=== PATIENT | male | born 1965 | race Caucasian/White ===

== ENCOUNTER 2018-11-01 11:22 | Inpatient (IN) | payer OTHER ==
[~2018-11-01] VITALS: Ht 175.3 cm; Wt 83.0 kg
[2018-11-01] MEDS ORDERED: IBUPROFEN 200 MG TABLET PO PRN (14:30)
[2018-11-01] MEDS ORDERED: ACETAMINOPHEN ES 500 MG TABLET PO PRN (14:30)
[2018-11-01] MEDS ORDERED: LORAZEPAM 1 MG TABLET FOR AGITATION PO PRN (14:30)
[2018-11-01] MEDS ORDERED: MAGNESIUM HYDROXIDE 30 ML UDC PO PRN (14:30)
[2018-11-01] MEDS ORDERED: ZOLPIDEM TARTRATE 10 MG TABLET PO PRN (14:30)
[2018-11-01] MEDS ORDERED: QUET400T PO (14:42)
[2018-11-01] MEDS ORDERED: ROPI0.5T PO (14:42)
[2018-11-01 14:45] VITALS: BP 122/83
--- NOTE | 2018-11-01 15:30 | NUR ---
MS/RN - Admission Patient is a direct admit from Dr. Christopher's office for clinical trial, alert and oriented x 4, denies pain, no apparent distress, calm and cooperative with care. Patient admitted for Schizophrenia. Skin assessment done, no skin breakdown, refused photo to be taken. Patient oriented to room and use of call light. All belongings accounted, refused inventory of black luggage. MRSA surveillance protocol done. Admission orders noted and carried out. Will continue to monitor and intervene as needed.
[2018-11-01 16:00] VITALS: BP 122/83
--- NOTE | 2018-11-01 16:30 | NUR ---
MS/RN - S/b Dr. Christopher Seen and examined by Dr. Christopher with no new orders.
[2018-11-01] MEDS: REQUIP 1 MG PO SCH (17:16)
--- NOTE | 2018-11-01 18:10 | NUR ---
MS/RN - End of shift summary No new events seen, resting comfortably, no behavioral issues noted at this time. Will continue to monitor closely and endorse to night nurse accordingly.
--- NOTE | 2018-11-01 19:15 | NUR ---
MS/RN - Admission RECEIVED PT IN BED AWAKE AND ABLE TO MAKE NEEDS KNOWN. PT A/O X4. PT ON CLINICAL TRIAL WITH DR. NAVA. PT DENIES PAIN AT THIS TIME. RESPIRATIONS EVEN AND UNLABORED WITH NO S/S OF ACUTE DISTRESS OR SOB NOTED. SAFETY MEASURES IN PLACE WITH BED IN LOWEST LOCKED POSITION WITH SIDE RAILS UP X2. CALL LIGHT WITHIN REACH. WILL CONTINUE TO MONITOR. Addendum: 11/02/18 at 0352 by HAI JACOBSEN RN MS RN NOTES
[2018-11-01 20:00] VITALS: BP 134/86
[2018-11-01] MEDS: MAG HYDROX/AL HYDROX/SIMETH 30 ML UDC PO PRN (21:52)
--- NOTE | 2018-11-01 21:56 | NUR ---
MS RN NOTES CALLED DR. NAVA FOR PRN MEDICATION MAALOX FOR PT WITH UPSET STOMACH. DR. NAVA CLARIFIED THAT IT WAS OKAY TO GIVE TO PT. MEDICATION WAS ADMINISTERED.
[2018-11-01] MEDS ORDERED: SEROQUEL 300 MG PO SCH (22:00)
--- NOTE | 2018-11-02 07:29 | NUR ---
MS RN NOTES PT IN BED SLEEPING BUT EASILY AWOKEN VERBALLY OR BY TOUCH, AND ABLE TO MAKE NEEDS KNOWN. PT A/O X4. PT ON CLINICAL TRIAL WITH DR. NAVA. PT DENIES PAIN AT THIS TIME. RESPIRATIONS EVEN AND UNLABORED WITH NO S/S OF ACUTE DISTRESS OR SOB NOTED THROUGHOUT SHIFT. SAFETY MEASURES IN PLACE WITH BED IN LOWEST LOCKED POSITION WITH SIDE RAILS UP X2. CALL LIGHT WITHIN REACH. WILL ENDORSE TO ONCOMING NURSE FOR ANTONI.
[2018-11-02 08:00] VITALS: BP 123/73
--- NOTE | 2018-11-02 08:00 | NUR ---
M/S RN NOTES PATIENT AWAKE, ALERT AND ORIENTED X4. PATIENT WITH NO ACUTE DISTRESS NOTED. PATIENT DENIES ANY PAIN. PT ON CLINICAL TRIAL WITH DR. NAVA. PATIENT ABLE TO MAKE NEEDS KNOWN. BED ON LOW AND LOCKED POSITION. CALL LIGHT WITHIN REACH.
--- NOTE | 2018-11-02 17:50 | NUR ---
M/S RN NOTES PATIENT AWAKE IN BED WATCHING TV. ALERT AND ORIENTED X4. PATIENT IN NO ACUTE DISTRESS. MEDS GIVEN ORDERED. WILL ENDORSE TO ONCOMING NURSE. Addendum: 11/02/18 at 1842 by ERICA GAO RN PATIENT MOVED TO ROOM [facility] FOR ROOMMATE COMPATIBILITY. NO BEHAVIORAL CHANGES NOTED. PATIENT CALM AND COOPERATIVE.
[2018-11-02] MEDS: REQUIP 1 MG PO SCH (17:56)
[2018-11-02 20:00] VITALS: BP 130/87
[2018-11-02 20:26] VITALS: BP 130/87
--- NOTE | 2018-11-02 21:00 | NUR ---
RN NOTES COMPLAINED OF HEADACHE-TYLENOL ES WAS GIVEN
[2018-11-02] MEDS: SEROQUEL 200 MG PO SCH (22:27)
--- NOTE | 2018-11-03 06:52 | NUR ---
RN NOTES AWAKE, DENIES PAIN, NO SOB, MORNING CARE RENDERED, PT. NEEDS ATTENDED
--- NOTE | 2018-11-03 07:45 | NUR ---
MS RN OPENING NOTES RECEIVED PT IN BED, AWAKE. TOLERATING RA, WITH NO ACUTE RESPIRATORY DISTRESS. PT DENIES PAIN AT THIS MOMENT. PT DENIES ANY CONCERNS OR QUESTIONS. PT KEPT COMFORTABLE. ORIENTED REGARDING BREAKFAST TIME, SMOKING PERIOD AND STAFFS THAT CAN HELP HIM FOR THE DAY. PT'S BED KEPT IN LOWEST, LOCKED POSITION WITH SR X2. CALL LIGHT KEPT WITHIN REACH. WILL CONTINUE PLAN OF CARE.
[2018-11-03 08:00] VITALS: BP_SYST 101; BP_SYST 110; BP_DIAS 77
--- NOTE | 2018-11-03 09:37 | NUR ---
MS RN NOTES RECEIVED CALL ANS SPOKE TO DR NAVA. VERIFIED PT'S SEROQUEL TONIGHT TO BE 200MG [id number]. DR NAVA ALSO ORDERED TO PLACE AN ORDER FOR PT TO BE DISCHARGE TOMORROW. MD WILL SEE PT TODAY IN A BIT LATER AND WILL TELL HE HIMSELF TO THE PT REGARDING DISCHARGE TOMORROW.
[2018-11-03 16:00] VITALS: BP 144/94
[2018-11-03] MEDS: REQUIP 1 MG PO SCH (17:02)
--- NOTE | 2018-11-03 19:01 | NUR ---
MS RN CLOSING NOTES PT REMAINS IN BED, AWAKE. AMBULATORY. TOLERATING RA, WITH NO ACUTE RESPIRATORY DISTRESS. PT DENIES PAIN. PT ABLE TO MAKE NEEDS KNOWN. ALL NEEDS AND CARE ATTENDED. PT KEPT COMFORTABLE. PT'S BED KEPT IN LOWEST, LOCKED POSITION WITH SR X2. CALL LIGHT KEPT WITHIN REACH. WILL ENDORSE TO CORPORATE COUNSELOR NURSE FOR ANTONI.
[2018-11-03] MEDS: MAG HYDROX/AL HYDROX/SIMETH 30 ML UDC PO PRN (19:38)
--- NOTE | 2018-11-03 19:38 | NUR ---
RN NOTES RECEIVED PT. AWAKE ON BED, A/OX4, AMBULATORY, ON CLINICAL TRIAL, ASKING FOR MAALOX- MAALOX 30ML PO GIVEN ORDERED, CALL LIGHT WITHIN REACH, [id number], CONTINUE TO MONITOR
[2018-11-03 20:00] VITALS: BP 127/90
[2018-11-03] MEDS: SEROQUEL 200 MG PO SCH (21:33)
--- NOTE | 2018-11-04 06:30 | NUR ---
RN NOTES AWAKE, NOT IN DISTRESS, NO PAIN NOTED, NO SOB, MORNING CARE RENDERED, PT. NEEDS ATTENDED
--- NOTE | 2018-11-04 07:10 | NUR ---
RN OPENING NOTE THE PATIENT ALERT AND ORIENTED X4. DENIES SOB. RESPIRATION REGULAR AND UNLABORED. DENIES PAIN. THE PATIENT IN NO APPARENT DISTRESS. NO IV. BED LOW AND LOCKED. SIDE RAILS UP X3. CALL LIGHT WITHIN REACH. WILL CONTINUE TO MONITOR. Addendum: 11/04/18 at 0749 by WILLIAM SCHULTZ RN DENIES SI/HI.
[2018-11-04 08:07] VITALS: BP 119/75
--- NOTE | 2018-11-04 11:50 | NUR ---
RN NOTE CONFIRMED THE DISCHARGE ORDER FROM DR NAVA. THE PATIENT ALERT AND ORIENTED X4. IN ROOM AIR AND DENIES SOB. RESPIRATION REGULAR AND UNLABORED. DENIES PAIN. DISCHARGE EDUCATION GIVEN AND THE PATIENT VERBALIZED UNDERSTANDING. THE PATIENT IS OFFERED DR NAVA ADDRESS BUT HE STATED THAT HE HAS THE ADDRESS AND HE IS GOING TO SEE THE DOCTOR AFTER LEAVING TO THE HOSPITAL. PATIENT`S ALL BELONGINGS, INCLUDING PERSONAL MEDICATIONS, HANDED BACK TO THE PATIENT. PATIENT LEFT THE HOSPITAL IN STABLE CONDITION.
[2018-11-04] MEDS ORDERED: SEROQUEL 200 MG PO SCH (22:00)
[2018-11-05] MEDS ORDERED: SEROQUEL 150 MG PO SCH (22:00)
[2018-11-08] MEDS ORDERED: LORAZEPAM 1 MG TABLET FOR AGITATION PO PRN (12:00)
[2018-11-08] MEDS ORDERED: INVESTIGATIONAL MED RGH-MD-24 1 CAP PO SCH (17:00)
== END 2018-11-04 11:40 | disposition home or self-care (01) | DRG 951 ==
LOC: MED 14:05
PROVIDERS: ADMIT Psychiatry & Neurology Psychiatry; ATTEND Psychiatry & Neurology Psychiatry
DX: Z00.6 Encounter for examination for normal comparison and control in clinical research program (principal); F20.0 Paranoid schizophrenia; F14.90 Cocaine use, unspecified, uncomplicated; G25.81 Restless legs syndrome
CPT/HCPCS: 87081-TC; G0378